=== PATIENT | male | born 1955 | race Caucasian/White ===

== ENCOUNTER → 2019-07-11 | Outpatient (CLI) | payer OTHER | END | disposition home or self-care (01) | LOC: RAD 13:01 | PROVIDERS: ATTEND Nurse Practitioner Family | DX: M25.48 Effusion, other site (principal); H92.02 Otalgia, left ear; R68.84 Jaw pain | CPT/HCPCS: 70480 ==

== ENCOUNTER 2019-11-28 08:09 | Inpatient (IN) | payer OTHER ==
[~2019-11-28] VITALS: Ht 188 cm; Wt 135.9 kg
--- NOTE | 2019-11-28 08:23 | NUR ---
PT AMBULATED TO ROOM W/ A STEADY GAIT AT THIS TIME.
[2019-11-28] MEDS ORDERED: ASPIRIN 325 MG TABLET PO ONE (08:27)
[2019-11-28] MEDS ORDERED: ASPIRIN 325 MG TABLET ONE (08:46)
--- NOTE | 2019-11-28 08:51 | NUR ---
PIV STARTED, LABS DRAWN AND PT MEDICATED PER EMAR. PT TAKEN TO MRI.
[2019-11-28 08:55] LABS: BASOPHILS # (AUTO) 0.09 x10^3/uL (0-0.1); BASOPHILS % (AUTO) 1 % (0-1); EOSINOPHILS # (AUTO) 0.27 x10^3/uL (0-0.4); EOSINOPHILS % (AUTO) 3 % (1-7); LYMPHOCYTES # (AUTO) 1.51 x10^3/uL (1-3.4); LYMPHOCYTES % (AUTO) 18 % (22-44); MD NO; MEAN CORPUSCULAR HEMOGLOBIN 27.1 pg (27.5-34.5); MEAN PLATELET VOLUME 7.9 fL (7.4-10.4); MONOCYTES # (AUTO) 0.52 x10^3/uL (0.2-0.8); MONOCYTES % (AUTO) 6 % (2-9); NEUTROPHILS # (AUTO) 5.86 x10^3/uL (1.8-6.8); NEUTROPHILS % (AUTO) 71 % (42-75); PLATELET COUNT 328 x10^3/uL (130-400); RED BLOOD COUNT 5.51 x10^6/uL (4.38-5.82); RED CELL DISTRIBUTION WIDTH 14.8 % (9.4-14.8)
[2019-11-28 09:04] LABS: INTERNATIONAL NORMALIZED RATIO 0.94 (0.93-1.1); PROTHROMBIN TIME 9.7 Seconds (9.6-11.5)
[2019-11-28] MEDS ORDERED: GADOTERATE 7.5 MMOL/15 ML SYR ONE (09:08)
[2019-11-28 09:09] LABS: TROPONIN I < 0.015 ng/mL (0.000-0.045)
--- NOTE | 2019-11-28 09:15 | NUR ---
DISCUSSED W/ NEED FOR BMP. LAB ORDER ADDED ON.
[2019-11-28 09:34] LABS: ALBUMIN 3.9 g/dL (3.4-5.0); ANION GAP 7 mmol/L (5-15); CALCIUM 9.1 mg/dL (8.5-10.1); CHLORIDE 109 mmol/L (98-107); CREATININE 1.21 mg/dL (0.7-1.3)
--- NOTE | 2019-11-28 10:19 | NUR ---
PT RESTING ON [employer] W/ CALL LIGHT IN REACH, RESP EVEN AND UNLABORED, LILIANA.
--- NOTE | 2019-11-28 10:58 | NUR ---
REPORT GIVEN TO FRANCES WALKER. PT RESTING ON [employer] W/ CALL LIGHT IN REACH. LILIANA LOREDO.
--- NOTE | 2019-11-28 11:06 | NUR ---
REPORT GIVEN TO RUBY WALKER. PT READY FOR TRANSPORT AT THIS TIME.
[2019-11-28] MEDS ORDERED: CEFTRIAXONE PMX 1GM/50ML 50 ML IV ONE ×2 (12:00→13:00)
[2019-11-28 12:13] VITALS: BP 145/76
[2019-11-28] MEDS ORDERED: ONDANSETRON ODT 4 MG PO PRN (13:00)
[2019-11-28] MEDS ORDERED: ONDANSETRON 2MG/ML, 2ML IVPush PRN (13:00)
[2019-11-28] MEDS ORDERED: ACETAMINOPHEN 325 MG TABLET PO PRN (13:00)
[2019-11-28] MEDS ORDERED: METOCLOPRAMIDE 5 MG/ML, 2ML IVPush PRN (13:00)
[2019-11-28] MEDS ORDERED: KETOROLAC 30 MG/1 ML IV PRN (13:00)
[2019-11-28] MEDS ORDERED: POLYETHYLENE GLYCOL 17 GM PACKET PO PRN (13:00)
[2019-11-28] MEDS ORDERED: MELATONIN 5 MG TABLET PO PRN (13:00)
[2019-11-28] MEDS: LACTATED RINGERS 1,000 ML IV SCH ×2 (14:06→20:09)
[2019-11-28] MEDS: DEXAMETHASONE 1 MG TABLET PO SCH ×2 (15:59→20:05)
[2019-11-28] MEDS: MECLIZINE 12.5 MG TABLET PO SCH ×2 (15:59→20:04)
[2019-11-28] MEDS ORDERED: DEXAMETHASONE 4 MG TABLET ONE (19:37)
[2019-11-28 19:42] VITALS: BP 127/72
[2019-11-28] MEDS: OXYMETAZOLINE NASAL SPRAY 0.05%, 15ML NAS SCH (20:03)
[2019-11-29 00:33] VITALS: BP 119/69
[2019-11-29] MEDS ORDERED: DEXAMETHASONE 4 MG TABLET ONE ×2 (05:15→20:42)
[2019-11-29] MEDS: DEXAMETHASONE 1 MG TABLET PO SCH ×4 (05:18→20:56)
[2019-11-29] MEDS: LACTATED RINGERS 1,000 ML IV SCH ×2 (05:18→07:00)
[2019-11-29 05:41] LABS: ANION GAP 3 mmol/L (5-15); CHLORIDE 112 mmol/L (98-107)
[2019-11-29 06:45] VITALS: BP 113/70
[2019-11-29] MEDS: HYDROCHLOROTHIAZIDE 25 MG TABLET PO SCH (10:38)
[2019-11-29] MEDS: OXYMETAZOLINE NASAL SPRAY 0.05%, 15ML NAS SCH ×2 (10:38→20:54)
[2019-11-29] MEDS: LISINOPRIL 10 MG TABLET PO SCH (10:38)
[2019-11-29] MEDS: MECLIZINE 12.5 MG TABLET PO SCH ×2 (10:38→20:58)
[2019-11-29] MEDS: SENNA/DOCUSATE TABLET PO SCH (10:38)
[2019-11-29] MEDS: FLUTICASONE NASAL SPRAY 16GM NAS SCH (12:06)
[2019-11-29 13:27] VITALS: BP 115/72
[2019-11-29] MEDS: CEFTRIAXONE PMX 2GM/50ML 50 ML IV SCH (14:20)
[2019-11-29 20:50] VITALS: BP 116/66
[2019-11-29 23:44] VITALS: BP 124/66
[2019-11-30] MEDS: DEXAMETHASONE 1 MG TABLET PO SCH ×2 (06:00→10:03)
[2019-11-30] MEDS ORDERED: DEXAMETHASONE 4 MG TABLET ONE (06:23)
[2019-11-30 07:19] VITALS: BP 116/67
[2019-11-30] MEDS: SENNA/DOCUSATE TABLET PO SCH (09:00)
[2019-11-30] MEDS: MECLIZINE 12.5 MG TABLET PO SCH (10:03)
[2019-11-30] MEDS: FLUTICASONE NASAL SPRAY 16GM NAS SCH (10:03)
[2019-11-30] MEDS: OXYMETAZOLINE NASAL SPRAY 0.05%, 15ML NAS SCH (10:04)
[2019-11-30] MEDS: HYDROCHLOROTHIAZIDE 25 MG TABLET PO SCH (10:05)
[2019-11-30] MEDS: LISINOPRIL 10 MG TABLET PO SCH (10:05)
[2019-11-30] MEDS ORDERED: ACETAMINOPHEN 325 MG TABLET PO PRN (10:30)
[2019-11-30] MEDS ORDERED: HEPARIN 5,000 UNITS/ML, 1ML SQ SCH (11:00)
[2019-11-30 12:30] VITALS: BP 107/63
[2019-11-30] MEDS: CEFTRIAXONE PMX 2GM/50ML 50 ML IV SCH (12:52)
[2019-11-30] MEDS ORDERED: LISI-167 PO (14:23)
[2019-11-30] MEDS ORDERED: FLUT16SP24 NAS (14:23)
[2019-11-30] MEDS ORDERED: DEXA1TAB5 PO (14:23)
[2019-11-30] MEDS ORDERED: HYDR25TA6 PO (14:23)
[2019-11-30] MEDS ORDERED: CIPR7.5D OT (14:23)
[2019-11-30] MEDS ORDERED: CIPR500T87 PO (14:23)
[2019-11-30] MEDS ORDERED: OXYM15SP8 NAS (14:23)
[2019-11-30] MEDS ORDERED: MECL12.581 PO (14:23)
[2019-11-30] MEDS ORDERED: DEXAMETHASONE 1 MG TABLET PO SCH (21:00)
== END 2019-11-30 16:16 | disposition home or self-care (01) | DRG 153 ==
LOC: ED 09:51 → EDIP 10:44 → 4EST 12:06
PROVIDERS: ADMIT Family Medicine; ATTEND Internal Medicine
DX: H66.92 Otitis media, unspecified, left ear (principal); H70.92 Unspecified mastoiditis, left ear; E66.9 Obesity, unspecified; I10 Essential (primary) hypertension; G89.29 Other chronic pain; M54.9 Dorsalgia, unspecified; I45.10 Unspecified right bundle-branch block; Z68.38 Body mass index [BMI] 38.0-38.9, adult; Z79.899 Other long term (current) drug therapy
CPT/HCPCS: 36415; 70450; 70553; 71045; 80048; 82040; 84484; 85025; 85610; 85730; 93005; 96374; G0378; J0696; J1644; A9575; J7120

== ENCOUNTER 2020-01-06 10:49 | Emergency (ER) | payer OTHER ==
[~2020-01-06] VITALS: Ht 185.4 cm; Wt 148.5 kg
[~2020-01-06 10:49] MED LIST: CIPR500T87 PO; CIPR7.5D OT; DEXA1TAB5 PO; FLUT16SP24 NAS; HYDR25TA6 PO; LISI-167 PO; MECL12.581 PO; OXYM15SP8 NAS
--- NOTE | 2020-01-06 15:54 | NUR ---
PT CHANGING INTO GOWN. REPORTS NO METAL IMPLANTS. PENDING MRI.
[2020-01-06] MEDS ORDERED: KETOROLAC 30 MG/1 ML ONE (16:56)
[2020-01-06] MEDS ORDERED: KETOROLAC 30 MG/1 ML IM ONE (17:00)
[2020-01-06 17:07] VITALS: BP 134/84
== END 2020-01-06 17:09 | disposition home or self-care (01) ==
LOC: ED 13:52
DX: S83.91XA Sprain of unspecified site of right knee, initial encounter (principal); W19.XXXA Unspecified fall, initial encounter; Y93.89 Activity, other specified; Y92.098 Other place in other non-institutional residence as the place of occurrence of the external cause; Y99.8 Other external cause status
CPT/HCPCS: 73564; 73718; 96372; 99284; J1885